=== PATIENT | female | born 1995 | race Caucasian/White ===

== ENCOUNTER 2019-05-04 06:12 | Emergency (ER) | payer OTHER ==
[2019-05-04 07:25] VITALS: BP 101/59; PULSE 63; TEMP 98.5; BMI 81.8
--- NOTE | 2019-05-04 08:04 | PDOC ---
History of Present Illness - General Chief Complaint: Eye Problem Stated Complaint: L EYE REDNESS Time Seen by Provider: 05/04/19 07:30 History Source: Patient - History of Present Illness Timing/Duration: other Past History - Past Medical History Allergies/Adverse Reactions: Allergies Allergy/AdvReac Type Severity Reaction Status Date / Time No Known Allergies Allergy Verified 05/04/19 07:25 Home Medications: Ambulatory Orders No Home Medications 0 dose .ROUTE UTDICT 05/28/13 Terconazole [Terazol 3] 20 gm VG BID #30 gm 05/29/13 Terconazole [Terazol 3] 80 mg VG HS #3 supp.vag 05/29/13 - Suicide/Smoking/Psychosocial Hx Smoking Status: No Smoking History: Never smoked Number of Cigarettes Smoked Daily: 0 Review of Systems - Review of Systems Constitutional: No: Chills, Fever HEENTM: No: Eye Pain, Blurred Vision, Tearing *Physical Exam - Vital Signs Last Vital Signs Temp Pulse Resp BP Pulse Ox 98.5 F 63 16 101/59 L 97 05/04/19 07:05 05/04/19 07:05 05/04/19 07:05 05/04/19 07:05 05/04/19 07:05 - Physical Exam General Appearance: Yes: Appropriately Dressed. No: Apparent Distress HEENT: positive: Normal Voice, Other (minimal edema diffusely to L eyelid, no sig ttp and no erythema, conjunc clear, no chemosis) Neck: positive: Supple Respiratory/Chest: negative: Respiratory Distress Integumentary: positive: Dry, Warm Neurologic: positive: Fully Oriented, Alert, Normal Mood/Affect Medical Decision Making - Medical Decision Making 05/04/19 08:38 23 yo F, no sig hx, here w/ L eyelid swelling and itching x 2 days. No pain, f/ c. +sneezing and cough see exam L eyelid edema and itching c/w allergy No e/o infxn -Dc w/ cold compresses and oral antihistamine *DC/Admit/Observation/Transfer Diagnosis at time of Disposition: Allergic reaction Qualifiers: Encounter type: initial encounter Qualified Code(s): T78.40XA - Allergy, unspecified, initial encounter - Discharge Dispostion Disposition: HOME Condition at time of disposition: Good - Referrals Referrals: Veronika Becker MD [Primary Care Provider] - - Patient Instructions Additional Instructions: It appears that you have an allergic reaction Apply cold compress to eye frequently throughout day Take benadryl, claritin or zyrtec as directed Return for worsening of symptoms - Post Discharge Activity Forms/Work/School Notes: Back to Work
== END 2019-05-04 07:46 | disposition home or self-care (01) ==
LOC: JER 06:12
DX: T78.40XA Allergy, unspecified, initial encounter (principal)
CPT/HCPCS: 99281-25